=== PATIENT | female | born 1945 | race Caucasian/White ===

== ENCOUNTER 2023-11-10 13:16 | Emergency (ER) | payer MEDICARE, SELFPAY ==
[2023-11-10 13:25] VITALS: BP 186/84
--- NOTE | 2023-11-10 14:52 | ED.GENMED ---
History of Present Illness
<Carmen Nava PA-C - Last Filed: 11/10/23 18:10>
General
Chief Complaint: Swelling
Source: patient
Exam Limitations: none
Time Seen by Provider: 11/10/23 14:39
Nursing documentation reviewed up to this point in time: agreed with
Travel History
Have you had any contact with someone who has COVID-19?: No
Do you have any symptoms of coronavirus? Fever > 100 degrees, chills, cough, shortness of breath, sore throat, loss of taste or smell, muscle aches, or headache?: No
History of Present Illness
History of Present Illness:
Patient is a 78-year-old female with history hyperlipidemia and breast cancer presenting for evaluation of atraumatic right foot swelling. She first noticed symptoms Monday evening which gradually worsened until today. Swelling seemed to decrease
today for the first time. She endorses some mild pain in right foot and some difficulty ambulating due to the swelling. She does state that she has been able to walk but has been 'limping '. Patient denies any fever, chills, chest pain, shortness
of breath. No recent viruses. She was seen at urgent care this morning with a performed an x-ray of the foot which showed no fracture or dislocation�they then referred her to the emergency department for DVT rule out. She has no personal or
family history of blood clots or clotting disorders. No recent surgeries.
Patient does report spending a lot of time driving in the car last Monday, the day before symptoms began. She then traveled on a plane from [place], [place] to [place] on Monday. It was Monday evening when symptoms first started.
She is currently here visiting from [place] to see her daughter. She is planning on traveling back to [place] on Monday.
Past History
<Carmen Nava PA-C - Last Filed: 11/10/23 18:10>
Past History
ED Past Medical History: Other (breast ca)
Social History
Living: with family
Phy Exam
<Carmen Nava PA-C - Last Filed: 11/10/23 18:10>
Physical Exam
Physical Exam:
General: Well appearing and non-toxic, vital signs reviewed - patient afebrile
HEENT: protecting airway
Neck: appears supple, no jugular venous distention
CV: Regular rate and rhythm, heart sounds normal, no evidence of cyanosis
Resp: No evidence of respiratory distress, lungs clear, no accessory muscle use
Abd: Non-distended
Extremities: Very mild diffuse swelling of right dorsal foot, no swelling, tenderness, or erythema of right calf; no bony tenderness; DP pulses palpable and equal bilaterally; right foot neurovascular intact with full range of motion in all joints
Neuro: alert and oriented to person place time, speech normal, no focal neurologic deficits, no focal motor deficits
Psych: Normal affect
Skin: Intact, no rashes
Scores
<Carmen Nava PA-C - Last Filed: 11/10/23 18:10>
Heart Failure Risk
Heart Failure Risk Score: Not Applicable
Course
<Carmen Nava PA-C - Last Filed: 11/10/23 18:10>
Orders/Labs/Results
Orders:
Orders
11/10/23 14:59
US Periph Venous LOWER Ext RT Urgent
Comment:
Reason For Exam: atraumatic right foot swelling, rule out dvt
Vital Signs
Initial and Last Documented VS:
Initial Vital Signs
Temp Pulse Resp BP Pulse Ox
98.6 F 70 16 186/84 99
11/10/23 13:25 11/10/23 13:25 11/10/23 13:25 11/10/23 13:25 11/10/23 13:25
Last Documented Vital Signs
Temp Pulse Resp BP Pulse Ox
98.6 F 70 16 186/84 98
11/10/23 13:25 11/10/23 13:25 11/10/23 13:25 11/10/23 13:25 11/10/23 14:24
<Andres Gale DO - Last Filed: 11/10/23 16:17>
Orders/Labs/Results
Orders:
Orders
11/10/23 14:59
US Periph Venous LOWER Ext RT Urgent
Comment:
Reason For Exam: atraumatic right foot swelling, rule out dvt
Vital Signs
Initial and Last Documented VS:
Initial Vital Signs
Temp Pulse Resp BP Pulse Ox
98.6 F 70 16 186/84 99
11/10/23 13:25 11/10/23 13:25 11/10/23 13:25 11/10/23 13:25 11/10/23 13:25
Last Documented Vital Signs
Temp Pulse Resp BP Pulse Ox
98.6 F 70 16 186/84 98
11/10/23 13:25 11/10/23 13:25 11/10/23 13:25 11/10/23 13:25 11/10/23 14:24
<Carmen Nava PA-C - Last Filed: 11/10/23 18:10>
MDM/Problems Addressed
Differential Diagnosis Includes:
Muscular strain, stress fracture, DVT
MDM/Problems Addressed:
Patient is 78-year-old female presenting for evaluation of right foot swelling. Swelling has been present over the past 4 days but mostly cleared up today. She was seen in urgent care where they did an x-ray to rule out a fracture and referred her
to emergency department to rule out blood clot. No chest pain, shortness of breath, or pain in right lower extremity. Patient extremely well-appearing. Vital signs are stable, afebrile. Lungs clear. Very minimal to essentially no swelling of
right foot present at this time. Right foot is neurovascularly intact. There is no swelling, tenderness, redness of right calf. No bony tenderness of right lower extremity. Due to referral from urgent care and history of breast cancer will get
ultrasound of right lower extremity to rule out blood clot although suspicion extremely low.
Ultrasound of right lower extremity negative for DVT.
Patient stable for discharge with return precautions, primary care follow-up. She is comfortable this plan. All questions answered.
Chronic conditions affecting care:
Hyperlipidemia, breast cancer
Acute Exacerbation and/or Progression of Chronic Illness:
Right foot swelling
<Carmen Nava PA-C - Last Filed: 11/10/23 18:10>
*Radiology
Radiology exam reviewed: radiology read reviewed
*Pulse Oximetry
Patient hypoxic: no
*Church Musician Interpretation
Rate: Church Musician- N/A
*Critical Care Note
Total Time (30-74mins, 75-104mins- exclusive of procedures): Not Applicable
ED Attending Note
<Carmen Nava PA-C - Last Filed: 11/10/23 18:10>
-
Portions of this chart may have been created with voice recognition software.� Occasional wrong word or��sound alike� substitutions may have occurred due to the inherent limitations of voice recognition software.
<Andres Gale DO - Last Filed: 11/10/23 16:17>
ED Attending Note
Patient seen and examined by attending physician: Yes
I performed the substantive portion of visit, reviewed & personally made and approve the management plan that is documented in note by myself or YING.: Yes
ED Attending Note:
I have seen and evaluated the patient with a [id number] encounter. I have spoken to the advance practicer provider and involved in the medical history, the physical exam, medical decision making.
Evaluation and management service: agree unless noted differently below.
Results interpretation: agree unless noted differently below.
Focused HPI: 78-year-old female presenting from urgent care to rule out DVT of right leg. She noticed right foot swelling that has since resolved
Physical exam: Well-appearing nontoxic. No bony tenderness. No tenderness to deep venous palpation
Medical Decision Making: Ultrasound negative for DVT. Discussed return precautions
Discharge Plan
Departure
Patient Disposition: Home (Routine Discharge)
Date of Disposition: 11/10/23
Time of Disposition: 16:18
Patient with high blood pressure during this ER visit?: Yes
Condition: Good
Covid-19: Not Applicable
Discharge Problem:
Swelling of right foot
Instructions: BLOOD PRESSURE
Referrals:
PRIVATE,PHYSICIAN [Family Provider] - Follow up in 1 week
Activity Restrictions/Additional Instructions:
-Return to the emergency department with chest pain, shortness of breath, altered mental status, numbness/ tingling in lower extremities, worsening in current symptoms, or any other concerns
-Follow-up with primary care for further evaluation/management
Interventions
Interventions:
*Risk Screen - Suicide Last Done: 11/10/23 13:25
*General Assessment Last Done: 11/10/23 14:24
*Neglect/Abuse Screening Last Done: 11/10/23 13:25
ED- Fall Risk Assessment Last Done: 11/10/23 14:24
*ED COVID-19 Vaccine History Last Done: 11/10/23 13:25
*Nursing Disposition Last Done: 11/10/23 16:40
ED- Cardiac Assessment Last Done: 11/10/23 14:24
ED- Pulmonary Assessment Last Done: 11/10/23 14:24
ED-Skin Assessment Last Done: 11/10/23 14:24
Discharge Date and Time
Discharge Date/Time: 11/10/23 16:41
== END 2023-11-10 16:41 | disposition home or self-care (01) ==
LOC: EMR 13:16
PROVIDERS: EMERGENCY PHYSICIAN Student in an Organized Health Care Education/Training Program
DX: R22.41 Localized swelling, mass and lump, right lower limb (principal); M79.89 Other specified soft tissue disorders; R03.0 Elevated blood-pressure reading, without diagnosis of hypertension; E78.5 Hyperlipidemia, unspecified; C50.919 Malignant neoplasm of unspecified site of unspecified female breast
CPT/HCPCS: 99284; 93971

== ENCOUNTER 2024-10-30 10:50 | Emergency (ER) | payer MEDICARE, OTHER, SELFPAY ==
[2024-10-30 10:56] VITALS: BP 178/77
--- NOTE | 2024-10-30 11:33 | EDRN ---
Pt arrives post fall when her legs gave out and fell onto her buttocks. Pt arrives w/ concerns for legs giving out and has lower back pain. Pt took two tylenol pre-arrival and pain is now 5/10. Before the tylenol pain was 5/10. Hurts w/ movement
(sitting and lying down 5-6/.10).
[2024-10-30 11:35] VITALS: BMI 32.3
[2024-10-30 11:39] VITALS: BP 159/78
--- NOTE | 2024-10-30 11:58 | ED.MUSCINJ ---
HPI-Injury
General
Chief Complaint: Fall
Source: patient
Exam Limitations: none
Time Seen by Provider: 10/30/24 11:37
History of Present Illness-Injury
Initial Injury comments:
79-year-old female not anticoagulated presents after a fall. She reached above her head to hang a picture and her legs gave out and she fell directly on her buttock. She notes lower back pain. She also notes a semirecent head injury where she
walked into the corner of a door and has had a headache and blurry vision since. Daughter who she lives with states that the patient has been falling frequently lately. No fevers. No chest pain or shortness of breath. Patient has chronic urinary
incontinence and wears a pad. No other complaints at this time.
Past History
Past History
ED Past Medical History: Other (breast ca)
Social History
Living: with family
Phy Exam
Physical Exam
Physical Exam:
General: Well-appearing female no acute respiratory distress
HEENT: Normocephalic hematoma in various stages of healing to the right forehead. Pupils equal round reactive to light
Heart: Regular rate and rhythm
Lungs: Clear no wheeze
Abdomen is soft nontender nondistended
Extremities: No cyanosis or edema
Musculoskeletal exam: Cervical and thoracic spines are nontender. She is tender over the lower lumbar spine but not tender over the sacrum or coccyx good range of motion both legs and arms
Neurologic exam: Alert and oriented no facial asymmetry or slurred speech good sensation to the upper and lower extremity
Injury Course
Orders/Labs/Results
Orders:
Orders
10/30/24 11:55
CT Head W/o Iv Contrast Urgent
Comment:
Reason For Exam: fall
CR Lumbar Spine 2 Or 3 Views Urgent
Comment:
Reason For Exam: fall, low back pain
10/30/24 12:38
Complete Blood Count/With Diff Urgent
Comprehensive Metabolic Panel Urgent
10/30/24 14:47
Urinalysis Reflex To Culture Urgent
Date Specimen was Collected: 10/30/24
Time Specimen was Collected: 14:44
Urine Microscopic Reflex Cult Urgent
Urine Culture Urgent
PALLAVI Source: U
Specimen Description:
Date Specimen was Collected: 10/30/24
Time Specimen was Collected: 14:44
10/30/24 14:49
Acetaminophen [Tylenol] 650 mg PO NOW STA
Abnormal Lab Results
10/30/24 10/30/24
12:38 14:47
WBC 18.2 H 10^3/uL
(4.8-10.8)
RBC 4.17 L 10^6/uL
(4.20-5.40)
MCH 31.2 H pg
(27.0-31.0)
Abs Immat Gran (auto) 0.1 H 10^3/uL
(0-0.05)
Absolute Neuts (auto) 15.6 H 10^3/uL
(1.4-6.5)
Absolute Monos (auto) 0.9 H 10^3/uL
(0.1-0.6)
Immature Gran % 0.8 H %
(0-0.5)
Neutrophils % 85.6 H %
(42.2-75.2)
Lymphocytes % 7.3 L %
(20.5-51.1)
Sodium 134 L mmol/L
(135-145)
Chloride 94 L mmol/L
(98-107)
Carbon Dioxide 31 H mmol/L
(22-30)
BUN 25 H mg/dl
(7-17)
Creatinine 1.2 H mg/dL
(0.6-1.0)
Glucose 121 H mg/dl
(70-99)
Ur Occult Blood Reflex Trace A
(Negative)
Leukocyte Esterase Rfl 2+ A
(Negative)
Urine WBC (Reflex) 30-40 A /HPF
(0-5)
Urine Bacteria (Reflex) Moderate A
(Negative)
10/30/24 12:38
10/30/24 12:38
MDM/Problems Addressed
Differential Diagnosis Includes:
Fall with lower back pain and recent head injury and multiple other falls. Question underlying infection versus general deconditioning. No unilateral deficit to suggest CVA.
Also concerned with lower back pain consider contusion versus sprain versus compression fracture.
Will check labs and urinalysis. CT head and x-ray lumbar spine pending
*Critical Care Note
Total Time (30-74mins, 75-104mins- exclusive of procedures): Not Applicable
Update Note
Update Note:
CT head negative. X-ray lumbar spine demonstrates compression fracture of L1. Patient's white blood cell count was elevated 18,000 possibly reactive from pain but did check urinalysis. There is possible UTI. Will cover with Omnicef. Patient was
given Tylenol for her back pain. She ambulated well with a walker here. Will recommend to continue dorsalis of Tylenol and Lidoderm patches for back and will prescribe Omnicef for her UTI. Stable for discharge. She is afebrile with stable vital
signs
ED Attending Note
-
Portions of this chart may have been created with voice recognition software.� Occasional wrong word or��sound alike� substitutions may have occurred due to the inherent limitations of voice recognition software.
Discharge Plan
Departure
Patient Disposition: Home (Routine Discharge)
Date of Disposition: 10/30/24
Time of Disposition: 16:58
Patient with high blood pressure during this ER visit?: No
Discharge Problem:
Acute UTI, Compression fracture
Instructions: Urinary tract infections in adults, Vertebral compression fracture
Prescriptions:
New
lidocaine [Lidoderm] 5 % adhesive patch,medicated
1 patch topical DAILY Qty: 15 0RF
cefdinir 300 mg capsule
300 mg PO BID Qty: 14 0RF
Referrals:
Britton Nino DO [Family Provider] -
Activity Restrictions/Additional Instructions:
Continue with Tylenol for pain. Use antibiotic as directed for urinary tract infection and Lidoderm patch for pain relief for your compression fracture. Return here for worsening symptoms. Follow-up with your doctor. Use walker when ambulating.
Interventions
Interventions:
*Risk Screen - Suicide Last Done: 10/30/24 10:56
*General Assessment Last Done: 10/30/24 10:56
*Neglect/Abuse Screening Last Done: 10/30/24 11:36
ED- Fall Risk Assessment Last Done: 10/30/24 11:37
*ED COVID-19 Vaccine History Last Done: 10/30/24 10:56
ED-Musculoskeletal Assessment Last Done: 10/30/24 11:36
ED- Neurological Assessment Last Done: 10/30/24 11:36
ED-Skin Assessment Last Done: 10/30/24 11:36
Discharge Date and Time
Print Language: KYRGYZ
--- NOTE | 2024-10-30 12:51 | EDRN ---
Pt awaiting to go to xray and CT at this time. Pt unable to void at this time.
[2024-10-30 12:52] LABS: % Basophils 0.5 % (0-2); % Eosinophils 0.8 % (0-6); % Immature Granulocytes 0.8 % (0-0.5); % Lymphocytes 7.3 % (20.5-51.1); % Neutrophils 85.6 % (42.2-75.2); Absolute Basophils 0.1 10^3/uL (0-0.2); Absolute Eosinophils 0.2 10^3/uL (0-0.7); Absolute Immature Granulocytes 0.1 10^3/uL (0-0.05); Absolute Lymphocytes 1.3 10^3/uL (1.2-3.4); Absolute Monocytes 0.9 10^3/uL (0.1-0.6); Absolute Neutrophils 15.6 10^3/uL (1.4-6.5); Hematocrit 38.5 % (37.0-47.0); Mean Corp Hgb Conc. 33.8 g/dL (33.0-37.0); Mean Corpuscular Hgb 31.2 pg (27.0-31.0); Mean Corpuscular Volume 92.3 fL (81.0-99.0); Mean Platelet Volume 10.1 fL (7.4-10.4); Nucleated Red Blood Cells % 0 %; Platelet Count 251 10^3/uL (130-400); Red Blood Cell Count 4.17 10^6/uL (4.20-5.40); Red Cell Dist. Width 11.9 % (11.5-14.5); White Blood Cell Count 18.2 10^3/uL (4.8-10.8)
[2024-10-30 13:06] VITALS: BP 161/84
[2024-10-30 13:06] LABS: ALT (SGPT) 28 U/L (0-35); AST (SGOT) 29 U/L (14-36); Albumin 4.3 g/dl (3.5-5.0); Alkaline Phosphatase 95 U/L (38-126); Blood Urea Nitrogen 25 mg/dl (7-17); Calcium 9.6 mg/dl (8.4-10.2); Carbon Dioxide 31 mmol/L (22-30); Chloride 94 mmol/L (98-107); Estimated Creatinine Clearance 44 ml/min; Glucose 121 mg/dl (70-99); Potassium 4.7 mmol/L (3.5-5.1); Sodium 134 mmol/L (135-145); Total Bilirubin 0.6 mg/dl (0.2-1.3); Total Protein 6.8 g/dl (6.3-8.2); eGFR 46.33
--- NOTE | 2024-10-30 13:26 | EDRN ---
Pt given water to drink for abilty to give urine spec.
--- NOTE | 2024-10-30 14:45 | EDRN ---
Pt to BR and back for urine sample in w/c. Pt is now in worse lower back pain at this time. Pain now 6/10. Pt is asking for medications for pain at this time.
[2024-10-30] MEDS: TYLENOL 650 MG PO (14:52)
[2024-10-30 14:56] LABS: Urine Bilirubin Negative (Negative); Urine Character Clear (Clear); Urine Color Yellow; Urine Glucose Negative (Negative); Urine Ketone Negative (Negative); Urine Leukocyte 2+ (Negative); Urine Nitrite Negative (Negative); Urine Occult Blood Trace (Negative); Urine Urobilinogen Negative (Neg - 1+)
[2024-10-30 14:59] LABS: Urine Albumin Negative (Neg - Trace)
[2024-10-30 15:31] LABS: Urine Bacteria Moderate (Negative); Urine Red Blood Cell 0-2 /HPF (0-2); Urine Squamous Cell >30 /LPF (Few); Urine White Cell 30-40 /HPF (0-5)
[2024-10-30 16:10] VITALS: BP 160/72
--- NOTE | 2024-10-30 16:11 | EDRN ---
Marek JONSE in room w/ pt and daughter at this time.
--- NOTE | 2024-10-30 16:45 | EDRN ---
This RN TT'd Marek JONES w/ results of ambulating pt w/ walker at this time: 'Pt ambulated w/ walker to hallway w/out difficulty. Pt stated she felt very stable w/ the walker as well. Pain lying was 2/10 and walking w/ walker was 3-4/10. RE
Michelle Brown p-2 ED RN'
== END 2024-10-30 17:32 | disposition home or self-care (01) ==
LOC: EMR 10:50
PROVIDERS: Physician Assistant; EMERGENCY PHYSICIAN Emergency Medicine; FAMILY PHYSICIAN Internal Medicine
DX: S32.019A Unspecified fracture of first lumbar vertebra, initial encounter for closed fracture (principal); N39.0 Urinary tract infection, site not specified; W19.XXXA Unspecified fall, initial encounter; Z85.3 Personal history of malignant neoplasm of breast
CPT/HCPCS: 99284; 70450; 72100; 80053; 81003; 81015; 85025; 87086